=== PATIENT | female | born 1980 | race Two or more races ===

== ENCOUNTER 2022-04-16 16:46 | Emergency (ER) | payer OTHER ==
[~2022-04-16] VITALS: Ht 170.2 cm; Wt 72.6 kg
[~2022-04-16 16:46] MED LIST: APRESOLINE 10MG10 MG; ATENOLOL25 MG; FLEXERIL10 MG PO; MILLIPRED5 MG; NABUMETONE750 MG PO; NORVASC5 MG
== END 2022-04-16 20:30 | disposition home or self-care (01) ==
LOC: ER 16:46
DX: L98.499 Non-pressure chronic ulcer of skin of other sites with unspecified severity (principal); I10 Essential (primary) hypertension; Z88.8 Allergy status to other drugs, medicaments and biological substances

== ENCOUNTER 2022-04-26 11:16 | Emergency (ER) | payer OTHER ==
[~2022-04-26] VITALS: Ht 170.2 cm; Wt 72.6 kg
[2022-04-26] MEDS ORDERED: ZOLOFT25 MG PO (11:42)
[2022-04-26] MEDS ORDERED: AZOR 10-20 MG1 EACH (11:42)
[2022-04-26] MEDS ORDERED: ADULT LOW DOSE81 M1 PO (11:43)
[2022-04-26] MEDS ORDERED: LEVO-T112 MCG PO (11:43)
[2022-04-26] MEDS ORDERED: HYDROXYCHLOROQ100 GM PO (11:49)
== END 2022-04-26 14:33 | disposition home or self-care (01) ==
LOC: ER 11:16
DX: L97.929 Non-pressure chronic ulcer of unspecified part of left lower leg with unspecified severity (principal); Z88.8 Allergy status to other drugs, medicaments and biological substances; I10 Essential (primary) hypertension; E03.9 Hypothyroidism, unspecified